=== PATIENT | male | born 1995 | race Two or more races ===

== ENCOUNTER 2018-12-01 00:08 | Observation (INO) | payer BC, OTHER ==
[~2018-12-01] VITALS: Ht 177.8 cm; Wt 65.8 kg
[~2018-12-01 00:08] MED LIST: AMOCLA400S PO; CEPH250SUA PO; HYDACE7.5L PO
[2018-12-01 12:01] LABS: BASOPHILS ABSOLUTE AUTO 0.05 K/mm3 (0.00-0.23); BASOPHILS PERCENT AUTO 1 % (0-2); EOSINOPHILS ABSOLUTE AUTO 0.04 K/mm3 (0.00-0.68); EOSINOPHILS PERCENT AUTO 1 % (0-6); Hematocrit 43.4 % (37.0-53.0); Hemoglobin 14.3 g/dL (13.5-17.5); IMMATURE GRAN ABSOLUTE AUTO 0.01 K/mm3 (0.00-0.10); IMMATURE GRAN PERCENT AUTO 0 % (0-1); LYMPHOCYTES ABSOLUTE AUTO 1.13 K/mm3 (0.84-5.20); LYMPHOCYTES PERCENT AUTO 28 % (21-46); MONOCYTES ABSOLUTE AUTO 0.38 K/mm3 (0.16-1.47); MONOCYTES PERCENT AUTO 10 % (4-13); Mean Corpuscular HGB 30.4 pg (26.0-34.0); Mean Corpuscular HGB Conc 32.9 g/dL (31.5-36.5); Mean Corpuscular Volume 92 fL (80-100); Mean Platelet Volume 8.9 fL (9.1-12.4); NEUTROPHILS ABSOLUTE AUTO 2.41 K/mm3 (1.96-9.15); NEUTROPHILS PERCENT AUTO 60 % (41-73); Platelet Count 285 K/mm3 (150-400); RDW Coefficient Variation 12.6 % (11.7-14.2); RDW Standard Deviation 43.3 fL (35.1-46.3); Red Blood Cell Count 4.71 M/mm3 (4.30-5.90); White Blood Cell Count 4.02 K/mm3 (4.00-11.30)
[2018-12-01 12:34] LABS: Alanine Aminotransfer (ALT/SGP 69 U/L (12-78); Albumin, Blood 4.1 g/dL (3.4-5.0); Albumin/Globulin Ratio 1.1 (0.8-1.8); Alk Phos 85 U/L (50-136); Anion Gap 9 mmol/L (6-16); Aspartate Aminotrans (AST/SGOT 78 U/L (12-37); Bilirubin, Total 0.5 mg/dL (0.1-1.0); Blood Urea Nitrogen 8 mg/dL (8-24); CO2, Blood 28 mmol/L (21-32); Calcium, Blood 8.8 mg/dL (8.5-10.1); Chloride, Blood 105 mmol/L (98-108); Ethanol (Alcohol), Blood, Med 121 mg/dL; Globulin, Blood 3.7 g/dL (2.2-4.0); Glomerular Filtration Rate >60 (60-); Glucose, Blood 72 mg/dL (70-99); Potassium, Blood 4.4 mmol/L (3.5-5.5); Salicylate <1.7 mg/dL (2.8-20.0); Sodium, Blood 142 mmol/L (136-145); Thyroxine (T4) 5.7 ug/dL (4.5-12.1); Total Protein, Blood 7.8 g/dL (6.4-8.2)
[2018-12-01 13:01] LABS: Acetaminophen, Random <2.0 ug/mL (10.0-30.0)
[2018-12-01] MEDS ORDERED: CHLO25 PO (15:01)
== END 2018-12-01 15:13 | disposition home or self-care (01) ==
LOC: ER 00:08 → EOR 00:09
PROVIDERS: Psychiatry & Neurology Psychiatry; ADMIT Emergency Medicine
DX: F32.9 Major depressive disorder, single episode, unspecified (principal); F10.129 Alcohol abuse with intoxication, unspecified; F17.220 Nicotine dependence, chewing tobacco, uncomplicated
CPT/HCPCS: 80053; 84436; 84443; 85025; 99285-25; G0378; G0480; Q3014

== ENCOUNTER 2021-01-04 13:25 | Emergency (ER) | payer OTHER ==
[~2021-01-04] VITALS: Ht 177.8 cm; Wt 70.3 kg
[~2021-01-04 13:25] MED LIST changes: +CHLO25 PO
[2021-01-04] MEDS ORDERED: Crutch1 EACH XX (16:03)
[2021-01-04] MEDS ORDERED: OXAYDO5 M1 PO (16:03)
== END 2021-01-04 16:09 | disposition home or self-care (01) ==
LOC: ER 13:25
DX: S82.51XA Displaced fracture of medial malleolus of right tibia, initial encounter for closed fracture (principal); W22.8XXA Striking against or struck by other objects, initial encounter; Y92.89 Other specified places as the place of occurrence of the external cause; Y99.0 Civilian activity done for income or pay
CPT/HCPCS: 29515; 73610; 99283-25

== ENCOUNTER 2021-01-11 11:15 | Day surgery (SDC) | payer OTHER ==
[~2021-01-11] VITALS: Ht 177.8 cm; Wt 71.5 kg
[~2021-01-11 11:15] MED LIST changes: +Crutch1 EACH XX; +OXAYDO5 M1 PO
--- NOTE | 2021-01-11 11:54 | NUR ---
PT AMBULATES TO [facility]. History, Chart, Medications and Allergies reviewed before start of procedure. Lungs clear T/O to Auscultation. Patient confirms NPO status and agrees with scheduled surgery. Patient States Post-Procedure ride home has been arranged.
--- NOTE | 2021-01-11 15:40 | NUR ---
Patient up to Ambulate independently. Gait steady. Discharge instructions reviewed with patient. Patient verbalizes understanding. Copy given to patient to take home. Patient States Post-Procedure ride home has been arranged. Dressing to procedure site clean, dry, intact with no visible drainage, swelling, erythema or bruising noted. PT GIVEN INSTRUCTIONS AND WALKED TO CAR. PT THEN INSTRUCTED ON HOME CARE AND FOLLOW UP CARE PT TOLD ME HE WAS GOING TO GO HOME AND DRINK BEER I TOLD HIM ABSOLUTLY NO DRINKING ALCOHOL FOR 24-48 HOURS OR WHILE ON NARCOTIC MEDS
== END 2021-01-11 23:07 | disposition home or self-care (01) ==
LOC: ORSCMMR 11:15
PROVIDERS: Orthopaedic Surgery
PROC: 0QSG04Z Reposition Right Tibia with Internal Fixation Device, Open Approach (ICD-10-PCS; principal; 2021-01-11 12:30)
DX: S82.51XA Displaced fracture of medial malleolus of right tibia, initial encounter for closed fracture (principal); F17.220 Nicotine dependence, chewing tobacco, uncomplicated; Z79.899 Other long term (current) drug therapy
CPT/HCPCS: C1713; C1769; J0171; J0690; J1100; J1885; J2250; J2405; J2704; J3010; J7120

== ENCOUNTER 2023-11-24 13:24 | Emergency (ER) | payer BC ==
[~2023-11-24] VITALS: Ht 177.8 cm; Wt 68.0 kg
[2023-11-24 13:30] VITALS: BP 158/101
== END 2023-11-24 14:25 | disposition home or self-care (01) ==
LOC: ER 13:24
DX: R07.81 Pleurodynia (principal); F17.220 Nicotine dependence, chewing tobacco, uncomplicated
CPT/HCPCS: 70450; 71046; 72125; 99283-25